=== PATIENT | male | born 1955 | race Hispanic/Latino ===

== ENCOUNTER 2019-08-22 10:40 | Emergency (ER) | payer BC ==
[2019-08-22] MEDS ORDERED: ASPIRIN 325MG EC TAB 325 MG TABLET.DR PO ONE (11:10)
[2019-08-22 11:25] LABS: BASOPHILS % (AUTO) 0.9 % (0.0-5.0); EOSINOPHILS % (AUTO) 8.5 % (0.0-8.0); HEMATOCRIT 40.5 % (42-54); LYMPHOCYTES % (AUTO) 27.8 % (21.0-51.0); MEAN CORPUSCULAR HEMOGLOBIN 28.3 pg (27.0-33.0); MEAN CORPUSCULAR HGB CONC 33.6 g/dL (32.0-36.0); MEAN CORPUSCULAR VOLUME 84.2 fL (79-99); NEUTROPHILS % (AUTO) 55.2 % (40.0-77.0); PLATELET COUNT (AUTO) 261 K/uL (130-400); RED BLOOD CELL COUNT(AUTO) 4.81 MIL/uL (4.50-6.20); RED CELL DISTRIBUTION WIDTH 12.2 % (11.0-15.5); WHITE BLOOD COUNT (AUTO) 9.4 K/uL (4.8-10.8)
[2019-08-22 11:35] LABS: CREATININE 1.1 mg/dL (0.5-1.5); INR 0.92 (0.85-1.15); PARTIAL THROMBOPLASTIN TIME 27.5 SEC (26.3-35.5); POTASSIUM 3.8 mmol/L (3.5-5.1)
[2019-08-22 11:39] LABS: ALBUMIN 3.6 g/dL (3.5-5.0); BILIRUBIN,TOTAL 0.7 mg/dL (0.2-1.0); TOTAL PROTEIN, SERUM 6.8 g/dL (6.0-8.3)
== END 2019-08-22 15:23 | disposition home or self-care (01) ==
LOC: EDH 10:40
DX: J06.9 Acute upper respiratory infection, unspecified (principal); R07.89 Other chest pain; Z20.828 Contact with and (suspected) exposure to other viral communicable diseases; E11.9 Type 2 diabetes mellitus without complications; I10 Essential (primary) hypertension; E78.5 Hyperlipidemia, unspecified; I25.2 Old myocardial infarction; Z90.49 Acquired absence of other specified parts of digestive tract
CPT/HCPCS: 36415; 71045; 80053; 82550; 84484; 85025; 85610; 85730; 87633; 87635; 93005

== ENCOUNTER 2024-05-01 18:28 | Emergency (ER) | payer BC, MEDICARE ==
[~2024-05-01] VITALS: Ht 172.7 cm; Wt 86.2 kg
--- NOTE | 2024-05-01 18:42 | ERN ---
General Chief Complaint: Mechanical Fall Stated Complaint: FALL Time Seen by MD: 18:29 Time Seen by Midlevel: 18:29 Source: patient History of Present Illness Initial Comments Patient is a 69-year-old male presenting to the emergency department following a mechanical ground level fall. Patient states he was walking in his driveway when he tripped over a water hose landing on his right knee. He was able to ambulate after the fall. He reports pain to his right calf. He specifically denies any head injury or loss of consciousness. Denies being on any blood thinners. No other symptoms reported at this time. Allergies: Coded Allergies: No Known Drug Allergies (Unverified Allergy, Unknown, 08/22/19) Past Medical History Past Medical History: CHF, Diabetes-Type II, Hypertension Past Surgical History: None ROS Dictation CONSTITUTIONAL: Negative except for HPI HEAD/FACE: Negative except for HPI EENT: Negative except for HPI RESPIRATORY: Negative except for HPI GASTROINTESTINAL/ABDOMINAL: Negative except for HPI GENITOURINARY: Negative except for HPI MUSCULOSKELETAL: Negative except for HPI INTEGUMENTARY: Negative except for HPI NEUROLOGICAL/PSYCH: Negative except for HPI HEMATOLOGIC/LYMPHATIC: Negative except for HPI All Systems Negative, Except as noted above. 13 point review of systems assessed and all negative except for above. Physical Exam Physical Exam Dictation Vital Signs reviewed General Appearance: Alert, oriented x 3, no acute distress, well developed, nou rished. Head and Face: non-traumatic. Eyes: PERRL, pink conjunctivas, eyelid no trauma, anterior chamber with arcus senilis. Ears: Pinnas intact and no signs of trauma or erythema ear canals clear and no discharge TM no erythema Nose: No discharge, no bleeding. Oropharynx: Mouth normal, tongue pink, pharynx clear,no erythema, tonsils no exudates, no abscesses noted, mucous me mbrane moist Neck: Supple, non-tender, no thyromegaly, no masses, no JVD, no bruits Breast:Deferred Chest:No tenderness, no crepitus, no paradoxical movement, no retractions Lungs:Clear, well-ventilated, symmetric, no rales, no wheezing, no rhonchi, no stridor, good breath sounds bilaterally Heart: Regular rate, regular rhythm, no murmur, no gallops Vascular: no peripheral edema, Abdomen: Soft, positive bowel sounds, nondistended, no guarding, nontender, no rebound, no masses no hepatomegaly, no splenomegaly, no Bingham's sign, no hernias. Rectal: Deferred Genital: Deferred Neurological: Normal speech, motor function intact, sensory function intact Musculoskeletal: Neck nontender, full range of motion, back nontender, full range of motion, Extremities: nontender, full range of motion of the right knee, popliteal pulses intact, 2+ DP, PT pulses bilaterally, sensation is intact Skin: Abrasion over the right anterior knee Lymphatic: Deferred MDM MDM: Patient is a 69-year-old male presenting to the emergency department following a mechanical ground level fall. Patient states he was walking in his driveway when he tripped over a water hose landing on his right knee. He was able to ambulate after the fall. He reports pain to his right calf. He specifically denies any head injury or loss of consciousness. Denies being on any blood thinners. No other symptoms reported at this time. On physical examination patient was able to ambulate with a cane into the triage room. There is a superficial abrasion to the right knee however right knee has full range motion. Popliteal pulses intact. There is 2+ PT, PT pulses bilaterally. Sensation is intact to bilateral lower extremities. There was no overlying tenderness to the right knee. Right calf is tender to palpation and it is slightly swollen. Symptoms are consistent with a muscle strain. DVT less likely given that the symptoms started right after the patient fell. We will apply an Titus wrap and monitor over the next couple of days. Patient was given Tylenol with codeine in the emergency department will be discharged home with supportive management. Differential diagnosis: Muscle strain, fracture, contusion There are no social concerns with this patient. Prescription drug management Prescriptions will include: None Medical management and examination interpretation discussions were had by me with other qualified healthcare professionals as indicated for the patient's care. ED Course Orders Procedure Category Date Status Time Acetaminophen With PHA 05/01/24 Logged Codeine (Tylenol-Code 19:00 Apply Titus Wrap (Er) CPOE 05/01/24 Transmitted 18:38 Current Medications Medications (Trade) Dose Ordered Sig/Sherly Route PRN Reason Start Time Stop Time Status Last Admin Dose Admin Acetaminophen/ Codeine Phosphate (TYLenol-coDEINE TAB) 1 tab ONCE ONCE PO 05/01/24 19:00 05/01/24 19:01 UNV Vital Signs Date Time Temp Pulse Resp B/P (MAP) Pulse Ox O2 Delivery O2 Flow Rate FiO2 05/01/24 18:29 98.2 98 16 161/95 98 0 DX & DISP Disposition: Discharge Departure Impression: Primary Impression: Strain of right calf muscle Condition: Stable Additional Instructions: Your physical examination is consistent with a calf strain. You may take Tylenol and Motrin at home for pain. Follow up with your primary care doctor in 2-3 days for repeat evaluation. Return to the ER if you develop any new or worsening symptoms Referrals: LORRI IVEY MD (PCP) Time of Disposition: 18:40 I have reviewed the case, and I agree with, Diagnosis and Plan I performed the substantive portion of the visit. I have reviewed and personally made and approve the management plan that is documented in the note by myself or the ILENE. I acknowledge for responsibility for the patient's management plan. JANES AGEE May 01, 2024 18:42
[2024-05-01 18:51] VITALS: BP 160/90; PULSE 95; RESP 16; TEMP 98.3; O2SAT 98
--- NOTE | 2024-05-01 18:56 | NUR ---
PEND MED PROFILE BY PHARM PRIOR TO ADMINISTRATION AND DC
[2024-05-01] MEDS: acetaMINOPHEN WITH coDEINE 1 TAB TAB PO ONE (19:10)
== END 2024-05-01 19:28 | disposition home or self-care (01) ==
LOC: EDH 18:28
DX: S86.111A Strain of other muscle(s) and tendon(s) of posterior muscle group at lower leg level, right leg, initial encounter (principal); E11.9 Type 2 diabetes mellitus without complications; I11.0 Hypertensive heart disease with heart failure; I50.9 Heart failure, unspecified; W01.0XXA Fall on same level from slipping, tripping and stumbling without subsequent striking against object, initial encounter; Y93.01 Activity, walking, marching and hiking; Y92.89 Other specified places as the place of occurrence of the external cause; Y99.8 Other external cause status
CPT/HCPCS: 99282